=== PATIENT | female | born 1990 | race Caucasian/White ===

== ENCOUNTER 2016-07-24 10:36 | Day surgery (SDC) | payer MEDICAID ==
--- NOTE | 2016-05-16 11:06 | GHP ---
[f rep st] PREOP HISTORY AND PHYSICAL DATE OF ADMISSION: 05/18/2016 CHIEF COMPLAINT: Breast hypertrophy. HISTORY OF PRESENTING COMPLAINT: Nereyda Montoya is a 25-year-old woman who has been suffering from nec k, back, and shoulder pain secondary to enlarged breasts. PAST MEDICAL HISTORY: She has a history of irritable bowel, gastroesophageal reflux disease, and fib romyalgia. SOCIAL HISTORY: She is a nonsmoker. ALLERGIES: AMOXICILLIN, WHICH CAUSES SEVERE HEADACHES. MEDICATIONS: Celexa, buspirone, Lorazepam, Topamax, Prilosec, Pepcid. EXAMINATION: GENERAL: She is an obese 25-year-old woman. VITAL SIGNS: She stands 5 feet 5 inches tall, weighs 245 pounds. CARDIOVASCULAR: Heart sounds are normal. RESPIRATORY EXAM: Chest is bassam r, with good air entry. BREASTS: Examination of the breasts reveals obvious gigantomastia. IMPRESSION: Fit for procedure. PLAN: Bilateral breast reduction. /[id number]/MODL
--- NOTE | 2016-07-24 10:36 | GHP ---
[f rep st] PREOP HISTORY AND PHYSICAL DATE OF ADMISSION: 07/24/2016 CHIEF COMPLAINT: Breast hypertrophy. HISTORY OF PRESENTING COMPLAINT: The patient is a 26-year-old female who has been suffering from nec k, back, and shoulder pain secondary to enlarged breasts for many years. PAST MEDICAL HISTORY: Remarkable for irritable bowel disease, gastroesophageal reflux, and fibromyal marlin. SOCIAL HISTORY: She is a nonsmoker. ALLERGIES: She has no known drug allergies. She does report suffering migraines as a side effect fr om amoxicillin. MEDICATIONS: Buspirone 15 mg p.o. twice daily, famotidine 40 mg p.o. daily, topiramate 50 mg p.o. tw ice daily, lorazepam 0.5 mg p.o. twice daily, duloxetine 60 mg p.o. twice daily. She also takes Alev e as needed and Prilosec once daily. EXAMINATION: GENERAL: She is an obese 26-year-old female, standing 5 feet 5 inches tall and weighin g in at 245 pounds. CARDIOVASCULAR: Heart sounds are normal. RESPIRATORY: Chest is clear, with go od air entry. BREASTS: Examination of the breasts shows obvious gigantomastia. IMPRESSION: Fit for procedure. PLAN: Bilateral breast reduction. /[id number]/MODL
[2016-07-24] MEDS ORDERED: LIDOCAINE 1% 5 ML SDV ONE (10:46)
[2016-07-24] MEDS ORDERED: ceFAZolin 2 GM/DEXTROSE 100 ML IV ONE (11:00)
[2016-07-24] MEDS ORDERED: LR 1,000 ML IV ONE (11:11)
[2016-07-24] MEDS ORDERED: LIDOCAINE 1% 5 ML SDV ID PRN (11:11)
[2016-07-24] MEDS ORDERED: LIDO/EPI 1% **Not for Epidural 20 ML MDV ONE (12:22)
[2016-07-24] MEDS ORDERED: MIDAZOLAM 2 MG/2 ML VIAL ONE (12:32)
[2016-07-24] MEDS ORDERED: fentaNYL 100 MCG/2 ML INJ ONE ×4 (12:36→15:03)
[2016-07-24] MEDS ORDERED: PROPOFOL 200 MG/20 ML VIAL ONE (12:36)
[2016-07-24] MEDS ORDERED: LIDOCAINE 2% JELLY 5 ML TUBE ONE (12:51)
[2016-07-24] MEDS ORDERED: ONDANSETRON 4 MG/2 ML VIAL ONE (12:51)
[2016-07-24] MEDS ORDERED: METOCLOPRAMIDE 10 MG/2 ML VIAL ONE (12:51)
[2016-07-24] MEDS ORDERED: PROMETHAZINE HCL 25 MG/ML VIAL ONE (15:07)
--- NOTE | 2016-07-24 15:13 | GOP ---
[f rep st] OPERATIVE REPORT DATE OF OPERATION: 07/24/2016 SURGEON: Angelo Maravilla MD PREOPERATIVE DIAGNOSIS: Mammary hypertrophy. POSTOPERATIVE DIAGNOSIS: Mammary hypertrophy. PROCEDURE PERFORMED: Bilateral breast reduction. FINDINGS: ESTIMATED BLOOD LOSS: 75 mL. DESCRIPTION OF PROCEDURE: With patient lying supine under general anesthesia, the anterior chest reg ion was prepped and draped in usual fashion. Incisions were made according to preoperative markings for a modified vertical pattern breast reduction with superior medial pedicle technique. The pedicle s were de-epithelialized, and remaining area of skin excision was removed. Superior and lateral fallon st flaps were developed. This left a very large central breast pedicle which was reduced down approp riately on both sides. This resulted in removal of 812 g of tissue on the right side and 706 g of ti ssue on the left side. Temporary staple closure was carried out followed by a definitive closure wit h 3-0 Stratafix running subcuticular sutures. Coleman were then removed. Jose De Jesus-Celaya drains were placed bilaterally during the course of the closure. Dressings of Steri-Strips and gauze were applie d. Procedure was tolerated well. /[id number]/MODL
== END 2016-07-24 17:15 | disposition home or self-care (01) ==
LOC: FSGY 10:36
PROVIDERS: ATTEND Plastic Surgery
PROC: 0HBV0ZZ Excision of Bilateral Breast, Open Approach (ICD-10-PCS; principal; 2016-07-24 12:00)
DX: N62 Hypertrophy of breast (principal); M54.9 Dorsalgia, unspecified; K21.9 Gastro-esophageal reflux disease without esophagitis; K58.9 Irritable bowel syndrome, unspecified; M79.7 Fibromyalgia
CPT/HCPCS: J0690; J2250; J2405; J2550; J2704; J2765; J3010